=== PATIENT | female | born 1970 | race Two or more races ===

== ENCOUNTER 2017-04-18 09:40 | Emergency (ER) | payer OTHER, BC ==
[~2017-04-18] VITALS: Ht 149.9 cm; Wt 57.4 kg
[2017-04-18 10:24] LABS: BASOPHIL (%) 0.4 % (0-1); EOSINOPHIL (%) 2.3 % (0-5); EOSINOPHIL COUNT 0.2 K/uL (0-0.3); HEMATOCRIT 42.9 % (36.0-46.0); HEMOGLOBIN 14.6 G/DL (11.9-15.5); IMMATURE GRANULOCYTE (%) 0.1 % (0.0-0.7); LYMPHOCYTE COUNT 1.7 K/uL (1.0-2.8); MCH 27.5 PG (29.0-34.0); MCV 80.9 FL (83-99); MONOCYTE (%) 6.7 % (3-12); MONOCYTE COUNT 0.5 K/uL (0-0.8); NEUTROPHIL (%) 67.5 % (45-76); PLATELET COUNT 255 K/uL (156-360); RBC DIS.WIDTH-CV 12.5 % (11.8-14.6); RBC DIS.WIDTH-SD 36.5 % (39-53); WHITE BLOOD COUNT 7.5 K/uL (4.1-10.2)
[2017-04-18 10:36] LABS: AMYLASE 71 IU/L (1-118); CHLORIDE 107 mEq/L (99-109); POTASSIUM 4.6 mEq/L (3.7-5.4); SODIUM 139 mEq/L (136-147)
[2017-04-18 10:37] LABS: GLUCOSE 110 mg/dL (70-99)
[2017-04-18 10:41] LABS: CREATININE 0.8 mg/dL (0.6-1.3); SERUM ETHYL ALCOHOL < 10 mg/dL
[2017-04-18 10:42] LABS: GFR ESTIMATE (CALCULATED) > 59 mL/min/; UREA NITROGEN (BUN) 12 mg/dL (9-23)
[2017-04-18 10:44] LABS: LIPASE 34 U/L (1.0-51.0)
[2017-04-18 10:53] LABS: QUANTITATIVE HCG < 4.0 MIU/ML
[2017-04-18 12:48] LABS: TROP-I INTERPRETATION NEGATIVE; TROPONIN-I 0.01 ng/mL (0.0-0.30)
[2017-04-18 13:05] VITALS: BP 177/110
== END 2017-04-18 13:06 | disposition home or self-care (01) ==
LOC: TRA 09:40
PROVIDERS: Emergency Medicine
DX: S09.90XA Unspecified injury of head, initial encounter (principal); S20.212A Contusion of left front wall of thorax, initial encounter; V59.40XA Driver of pick-up truck or van injured in collision with unspecified motor vehicles in traffic accident, initial encounter; I10 Essential (primary) hypertension
CPT/HCPCS: 70450; 71046; 80048; 81003; 82150; 83690; 84484; 84702; 85025; 86850; 86900; 86901; 93005; 99281; 99283; G0480